=== PATIENT | female | born 1970 | race Two or more races ===

== ENCOUNTER 2024-02-15 09:35 | Day surgery (SDC) | payer OTHER ==
[~2024-02-15] VITALS: Ht 157.5 cm; Wt 55.3 kg
[2024-02-15] MEDS ORDERED: LIDOCAINE 2% 100 MG/5 ML UJET TP ONE (11:02)
[2024-02-15] MEDS: fentaNYL citrate 0.05 MG/ML VIAL ONE (11:18)
== END 2024-02-15 12:10 | disposition home or self-care (01) ==
LOC: MMU 09:35 → MDS 09:35
PROVIDERS: ATTEND Internal Medicine Gastroenterology
DX: R19.5 Other fecal abnormalities (principal); K64.8 Other hemorrhoids; Z90.49 Acquired absence of other specified parts of digestive tract; F17.210 Nicotine dependence, cigarettes, uncomplicated; Z82.49 Family history of ischemic heart disease and other diseases of the circulatory system; Z79.899 Other long term (current) drug therapy; Z98.890 Other specified postprocedural states
CPT/HCPCS: 45378; J3010